=== PATIENT | male | born 1975 | race African-American/Black ===

== ENCOUNTER 2021-05-28 08:11 | Emergency (ER) | payer MEDICAID ==
[~2021-05-28] VITALS: Ht 188 cm; Wt 86.5 kg
[2021-05-28 11:19] LABS: MEAN CORPUSCULAR VOLUME 78.7 fL (80.0-94.0); MEAN PLATELET VOLUME 7.1 fl (7.4-10.4); PLATELET 312 x1000/uL (130-400); RED BLOOD CELL COUNT 5.59 mill/uL (4.7-6.1); RED CELL DISTRIBUTION WIDTH 13.8 % (11.6-14.6)
[2021-05-28 11:22] LABS: CHLORIDE 105 mEq/L (98-107)
[2021-05-28 14:50] LABS: PLATELET ESTIMATE NORMAL
[2021-05-28 15:36] VITALS: BP 126/73
[2021-05-28 15:41] LABS: CLARITY URINE CLEAR (CLEAR); COLOR URINE YELLOW (YELLOW); KETONES URINE TRACE (NEGATIVE); LEUKOCYTE ESTERASE URINE NEGATIVE (NEGATIVE); NITRITE URINE NEGATIVE (NEGATIVE); OCCULT BLOOD URINE TRACE (NEGATIVE); PH URINE 5.5 (4.5-8.0); PROTEIN URINE NEGATIVE (NEGATIVE); SPECIFIC GRAVITY URINE 1.031 (1.005-1.030); UROBILINOGEN URINE 0.2 E.U./dL (0.2-1.0)
== END 2021-05-28 16:01 | disposition home or self-care (01) ==
LOC: ER 08:30
DX: U07.1 COVID-19 (principal); Z87.828 Personal history of other (healed) physical injury and trauma
CPT/HCPCS: 36415; 80053; 81003; 85025; 87426; 99283